=== PATIENT | female | born 1965 | race Two or more races ===

== ENCOUNTER 2019-11-19 22:08 | Emergency (ER) | payer OTHER ==
[~2019-11-19] VITALS: Ht 162.6 cm; Wt 65.8 kg
[2019-11-19 23:33] VITALS: BP 140/85
[2019-11-19] MEDS ORDERED: HYDROcodone-ACET 5/325MG TAB PO ONE (23:45)
== END 2019-11-19 23:48 | disposition home or self-care (01) ==
LOC: EDBD 22:08 → ER 22:12
DX: M54.5 Low back pain (principal); R51 Headache; I10 Essential (primary) hypertension; Z98.51 Tubal ligation status; V43.52XA Car driver injured in collision with other type car in traffic accident, initial encounter; Y93.89 Activity, other specified; Y99.8 Other external cause status; Y92.410 Unspecified street and highway as the place of occurrence of the external cause
CPT/HCPCS: 70450; 71045; 72125; 72128; 72131